=== PATIENT | female | born 1955 | race Caucasian/White ===

== ENCOUNTER 2019-07-09 08:40 | Outpatient (CLI) | payer MEDICARE, OTHER ==
--- NOTE | 2019-07-09 09:33 | CT ---
CT Abdomen Pelvis W Con: 07/09/2019 12:00 AM CLINICAL INFORMATION: Lower abdominal pain for the past 2 weeks COMPARISON: None. TECHNIQUE: Multiple contiguous axial images were obtained and a CT of the abdomen and pelvis with IV contrast. Oral contrast was administered. Coronal and sagittal reformats were performed. FINDINGS: Lower Chest: within normal limits. Abdomen: Liver: Scattered hypodensities measuring up to 8.4 cm in size represent cysts. Bile Ducts: Normal caliber. Gallbladder: No calcified gallstones. Normal caliber wall. Pancreas: within normal limits. Spleen: within normal limits. Adrenals: 1.1 cm right adrenal nodule. Kidneys: within normal limits. Pelvis: Reproductive Organs: Intrauterine fluid and air are seen. Ureters: within normal limits. Bladder: within normal limits. Peritoneum: Inflammatory changes seen adjacent to the sigmoid colon. There are couple of extraluminal foci of free air adjacent to the inflammatory change. Bowel: Scattered diverticula in the colon with inflammatory changes surrounding the sigmoid colon. Th e small bowel is normal in caliber. Mesentery and Retroperitoneum: No enlarged mesenteric or retroperitoneal lymph nodes. Vessels: Normal. Abdominal Wall: within normal limits. Bones: Within normal limits IMPRESSION: 1. Acute diverticulitis with contained perforation 2. Intrauterine air and fluid could be secondary to communication from the diverticulitis to either t he uterus or right fallopian tube. 3. Hepatic cysts 4. Right adrenal nodule
[2019-07-09] MEDS ORDERED: Iopamidol-370 76% 500 ML 1 ML ONE (13:53)
== END 2019-07-09 08:41 | disposition home or self-care (01) ==
LOC: BICCT 08:40
PROVIDERS: ATTEND Internal Medicine Gastroenterology
DX: K57.92 Diverticulitis of intestine, part unspecified, without perforation or abscess without bleeding (principal); K76.89 Other specified diseases of liver; E27.8 Other specified disorders of adrenal gland
CPT/HCPCS: 74177; Q9967